=== PATIENT | male | born 1965 | race Caucasian/White ===

== ENCOUNTER 2021-08-24 12:29 | Emergency (ER) | payer MEDICARE, SELFPAY ==
[2021-08-24 13:23] VITALS: BP 102/65; PULSE 95; RESP 21; TEMP 37.9; O2SAT 89; BMI 32.3
[2021-08-24 13:25] VITALS: O2SAT 94
--- NOTE | 2021-08-24 13:34 | W.ED.SOB ---
HPI - SOB/Dyspnea General: Chief Complaint: Shortness of Breath/Dyspnea Stated Complaint: Difficulty Breathing Time Seen by Provider: 08/24/21 13:33 History of Present Illness: HPI Narrative: Mr. 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 He describes symptom onset is gradual approximately 2 weeks ago. He initially thought that he just had a respiratory infection however symptoms have persisted. He has fevers, chills, generalized malaise and shortness of breath. Symptoms are worse with exertion. Symptoms at rest are mild in intensity and severe with exertion. Overall worsening. Over the past 2 days he has had episodes where he feels like he cannot get a good breath. He denies history of lung disease or smoking. Denies sick contacts. He is not vaccinated against Covid. No other specific exacerbating or relieving factors the patient identifies. Review of Systems General: Reports: 10 or more systems reviewed and unremarkable except in HPI and below PFSH ED PFSH: Social History Smoking and tobacco status: never smoked Second hand smoke exposure: No Smoking risk assessment/counseling performed?: Yes Alcohol intake: never Desire information about alcohol rehabilitation?: No Counseling given: No Desire information about substance/drug rehabilitation?: No Counseling given: No Adopted: No Caregiver/support person: No Lives independently: Yes Household members: none Housing: House Marital status: Single Physical Exam Narrative: EXAM NARRATIVE: GENERAL/CONSTITUTIONAL -mildly ill-appearing. No acute distress. Eyes - PERRL, no conjunctival injection ENMT - Atraumatic external nose and ears. Moist mucous membranes NECK - supple. trachea midline CARDIOVASCULAR - regular rate and rhythm. Peripheral pulses 2+ and equal RESPIRATORY -mild tachypnea. Coarse breath sounds to auscultation. No significant accessory muscle use. ABDOMEN/GI - Nontender/Nondistended. MSK - Extremities without obvious deformity or tenderness to palpation SKIN - Warm, Dry NEURO - alert and appropriately oriented. Moves all extremities equally. Course ED course: - Patient was seen and evaluated by me at bedside - Patient placed on cardiac monitors, IV access obtained - Initial evaluation notable for mildly ill appearance, febrile. -After treatment ordered initially with cautious fluids given possibility of Covid. - Labs notable for no leukocytosis, hemoconcentration. Metabolic panel with evidence of likely dehydration, mild transaminitis. Rapid Covid negative. Flu negative. - Imaging notable for patchy infiltrates consistent with pneumonia - Given negative rapid Covid additional fluids ordered. - Upon serial reexamination after treatment the patient was mildly improved - Based on patient history, evaluation, labs, and imaging as interpreted the most likely cause of the patient's condition is pneumonia, possibly atypical, which we treated with antibiotics - The results of ED evaluation were discussed with the patient including prescriptions and/or symptomatic cares (if applicable) including appropriate and responsible use, followup plan, and return precautions. The patient verbalized understanding and felt safe for discharge. - Patient discharged in satisfactory condition. Vital Signs: Vital signs: Vital Signs Temperature 100.2 F H 08/24/21 13:23 Pulse Rate 87 08/24/21 18:12 Respiratory Rate 24 H 08/24/21 18:12 Blood Pressure 111/71 08/24/21 18:12 Pulse Oximetry 90 08/24/21 18:12 MDM - SOB/Dyspnea Medical Records: Attestation: I reviewed the patient's medical records. Lab Data: Attestation: I reviewed the patient's lab results. Labs: Lab Results 08/24/21 08/24/21 08/24/21 14:23 14:23 14:30 WBC 8.0 10^3/uL 10^3/ uL (4.0-10.0) RBC 5.48 10^6/uL H 10 ^6/uL (4.1-5.3) Hgb 16.7 g/dL H g/dL (11.7-16.6) Hct 48.1 % % (42.0-52.0) MCV 87.8 fl fl (80-94) MCH 30.5 pg pg (28.0-34.0) MCHC 34.7 g/dL g/dL (30.0-36.0) RDW 13.2 % % (12.1-15.1) Plt Count 360 10^3/cmm 10^3 /cmm (130-400) MPV 9.4 fL fL (7.4-10.4) Neut % (Auto) 84.4 % % Lymph % (Auto) 10.7 % % Sherman % (Auto) 3.9 % % Eos % (Auto) 0.1 % % Baso % (Auto) 0.3 % % Neut # (Auto) 6.74 10^3/uL 10^3 /uL (1.8-7.7) Lymph # (Auto) 0.9 10^3/uL 10^3/ uL (0.8-4.8) Sherman # (Auto) 0.3 10^3/uL 10^3/ uL (0.2-0.9) Eos # (Auto) 0.0 10^3/uL 10^3/ uL (0.0-0.8) Baso # (Auto) 0.0 10^3/uL 10^3/ uL (0.0-0.1) Nucleated RBC % (a uto) 0 % % Nucleated RBCs # 0.0 /100WBC /100W BC Sodium Potassium Chloride Carbon Dioxide Anion Gap BUN Creatinine GFR Calculation Glucose Calculated Osmolal ity Lactic Acid Calcium Total Bilirubin AST ALT Alkaline Phosphata se Troponin T Baselin e Troponin T [address] [place] Delta Troponin T C-Reactive Protein Total Protein Albumin Globulin Procalcitonin Influenza Type A A g Influenza Type B A g SARS-CoV-2 RNA (RT -PCR) Detected A (NOT DETECTED) SARS-CoV-2 Ag (Rap id) Negative (Negative) 08/24/21 08/24/21 08/24/21 14:30 14:30 14:30 WBC RBC Hgb Hct MCV MCH MCHC RDW Plt Count MPV Neut % (Auto) Lymph % (Auto) Sherman % (Auto) Eos % (Auto) Baso % (Auto) Neut # (Auto) Lymph # (Auto) Sherman # (Auto) Eos # (Auto) Baso # (Auto) Nucleated RBC % (a uto) Nucleated RBCs # Sodium 132 mmol/L L mmol /L (136-145) Potassium 3.9 mmol/L mmol/L (3.5-5.1) Chloride 93 mmol/L L mmol/ L (98-107) Carbon Dioxide 24 mmol/L mmol/L (22-29) Anion Gap 18.9 (5-19) BUN 21 mg/dL H mg/dL (6-20) Creatinine 1.1 mg/dL mg/dL (0.7-1.2) GFR Calculation 69.8 mL/min L mL/ min (90-130) Glucose 85 mg/dL mg/dL (65-115) Calculated Osmolal ity 276 mOsm/kg L mOs m/kg (285-295) Lactic Acid 1.4 mmol/L mmol/L (0.5-2.2) Calcium 8.8 mg/dL mg/dL (8.5-10.5) Total Bilirubin 0.7 mg/dL mg/dL (0.15-1.2) AST 64 U/L H U/L (0-40) ALT 62 U/L H U/L (0-41) Alkaline Phosphata se 41 IU/L IU/L (40-130) Troponin T Baselin e 9 ng/L ng/L (0-15) Troponin T [address] [place] Delta Troponin T C-Reactive Protein 155.8 mg/L H mg/L (0.0-4.9) Total Protein 7.4 g/dL g/dL (6.6-8.7) Albumin 4.1 g/dL g/dL (3.5-5.2) Globulin 3.3 g/dL g/dL (1.3-4.6) Procalcitonin 0.41 ng/mL ng/mL (0-0.5) Influenza Type A A g Influenza Type B A g SARS-CoV-2 RNA (RT -PCR) SARS-CoV-2 Ag (Rap id) 08/24/21 08/24/21 14:34 16:51 WBC RBC Hgb Hct MCV MCH MCHC RDW Plt Count MPV Neut % (Auto) Lymph % (Auto) Sherman % (Auto) Eos % (Auto) Baso % (Auto) Neut # (Auto) Lymph # (Auto) Sherman # (Auto) Eos # (Auto) Baso # (Auto) Nucleated RBC % (a uto) Nucleated RBCs # Sodium Potassium Chloride Carbon Dioxide Anion Gap BUN Creatinine GFR Calculation Glucose Calculated Osmolal ity Lactic Acid Calcium Total Bilirubin AST ALT Alkaline Phosphata se Troponin T Baselin e Troponin T [address] [place] 11.07 ng/L ng/L (0-15) Delta Troponin T 2.07 ABS# ABS# (0-10) C-Reactive Protein Total Protein Albumin Globulin Procalcitonin Influenza Type A A g Negative (Negative) Influenza Type B A g Negative (Negative) SARS-CoV-2 RNA (RT -PCR) SARS-CoV-2 Ag (Rap id) EKG Data^: EKG 1: Attestation: I personally reviewed and interpreted this EKG as follows: EKG Interpretation Date: 08/24/21 EKG interpretation time: 15:37 Interpretation: Twelve-lead EKG shows a regular rhythm at a rate of 91. OH interval 157, QRS duration 96, QTc 423. Normal axis. Interpretation: Sinus rhythm. Limited interpretation of V3. Discharge Plan Discharge Patient Disposition: Home Clinical Impression: Community acquired pneumonia Condition: Stable Prescriptions: New doxycycline hyclate 100 mg tablet 100 mg PO BID 10 Days Qty: 20 RF: 0 Discharge Orders: Discharge ED (Routine); Ordered 08/24/21 Ordered By: Idris Mcguire Referrals: Conchita Calix FNP [Primary Care Provider] - Discharge Diet: Usual diet Discharge Activity: Resume usual activity Patient Instructions: Community Acquired Pneumonia (ED) Activity Restrictions/Additional Instructions: Thank you for visiting the emergency department. You were seen and evaluated for cough and other symptoms. You likely have a bacterial pneumonia which will be treated with antibiotics. Please follow-up with your primary care provider. Please return to the emergency department for worsening symptoms, failure to improve, or anything else that you are concerned about and feel needs emergency department evaluation. Coding Level of Care Code ED Nurse Staff Industrial for Dano Cruz
--- NOTE | 2021-08-24 13:47 | XR_ITS ---
WS: [id number] Portable AP upright chest, 08/24/2021 Clinical Data: sob Comparison: PA and lateral chest, 04/27/2019. Findings: Bilateral patchy pulmonary opacities have developed since the last chest x-ray. No nodules, masses or effusions are seen. The heart is normal. The pulmonary vascularity is not increased. No pn eumothorax is seen. Monitor leads are on the chest wall. XR/XR chest 1V portable [id number] Impression: Bilateral pulmonary patchy opacities which may represent pneumonia.
[2021-08-24 14:41] LABS: Basophils % 0.3 %; Eosinophils % 0.1 %; Hematocrit 48.1 % (42.0-52.0); Hemoglobin 16.7 g/dL (11.7-16.6); Lymphocytes # 0.9 10^3/uL (0.8-4.8); Lymphocytes % 10.7 %; Mean Corpuscular HGB Conc 34.7 g/dL (30.0-36.0); Mean Corpuscular Hemoglobin 30.5 pg (28.0-34.0); Mean Corpuscular Volume 87.8 fl (80-94); Mean Platelet Volume 9.4 fL (7.4-10.4); Monocytes # 0.3 10^3/uL (0.2-0.9); Monocytes % 3.9 %; Neutrophils # 6.74 10^3/uL (1.8-7.7); Neutrophils % 84.4 %; Nucleated Red Blood Cells % 0 %; Platelet Count 360 10^3/cmm (130-400); Red Blood Count 5.48 10^6/uL (4.1-5.3); Red Cell Distribution Width 13.2 % (12.1-15.1)
[2021-08-24 15:06] LABS: Troponin(5th) Baseline 9 ng/L (0-15)
[2021-08-24 15:08] LABS: Alanine Aminotransferase 62 U/L (0-41); Albumin Level 4.1 g/dL (3.5-5.2); Alkaline Phosphatase 41 IU/L (40-130); Anion Gap 18.9 (5-19); Aspartate Amino Transferase 64 U/L (0-40); Blood Urea Nitrogen 21 mg/dL (6-20); C Reactive Protein 155.8 mg/L (0.0-4.9); Calcium 8.8 mg/dL (8.5-10.5); Carbon Dioxide 24 mmol/L (22-29); Chloride 93 mmol/L (98-107); Globulin 3.3 g/dL (1.3-4.6); Glomerular Filtration Rate 69.8 mL/min (90-130); Glucose 85 mg/dL (65-115); Osmolality Calculated 276 mOsm/kg (285-295); Potassium 3.9 mmol/L (3.5-5.1); Sodium 132 mmol/L (136-145); Total Bilirubin 0.7 mg/dL (0.15-1.2); Total Protein 7.4 g/dL (6.6-8.7)
[2021-08-24 15:09] LABS: Lactic Sepsis W/Reflex 1.4 mmol/L (0.5-2.2)
[2021-08-24 15:14] LABS: Procalcitonin 0.41 ng/mL (0-0.5)
[2021-08-24 15:35] LABS: SARS Covid-2 Antigen Negative (Negative)
[2021-08-24 15:35] LABS: Influenza A by IFA Negative (Negative); Influenza B by IFA Negative (Negative)
[2021-08-24] MEDS: ketorolac 30 mg/mL INJ 15 MG IVP (15:47)
[2021-08-24] MEDS: sodium chloride 0.9% 500 ML 999 ML IV (15:48)
--- NOTE | 2021-08-24 15:48 | ECG_ITS ---
[facility] Test Date: 2021-08-24 Pat Name: Tio Flores Jr Department: Room: Gender: Male Escort Patients: : 1965 Requested By: Idris Mcguire Order Number: [id number] Isaac MD: Bean Fine M.D. Measurements Intervals [place] Rate: 91 P: 44 ND: 157 QRS: 3 QRSD: 96 T: 26 QT: 343 QTc: 423 Interpretive Statements SINUS RHYTHM POSSIBLE LEFT ATRIAL ENLARGEMENT [-0.1mV P-WAVE IN V1/V2] No previous ECG available for comparison Electronically Signed On 08-24-2021 19:48:39 FLESHING MACHINE OPERATOR by Bean Fine M.D. [id number]
[2021-08-24] MEDS: cefTRIAXone 1,000 MG in sodium chloride 0.9% (plus) 50 ML 100 MG IV (16:35)
[2021-08-24 16:36] VITALS: BP 106/75; PULSE 78; RESP 16; O2SAT 98
[2021-08-24] MEDS: sodium chloride 0.9% 1,000 ML 999 ML IV (16:36)
[2021-08-24 16:44] VITALS: O2SAT 89; O2SAT 91
[2021-08-24] MEDS: doxycycline 100 MG in sodium chloride 0.9% (plus) 100 ML IV (17:00)
[2021-08-24 17:18] LABS: Troponin 5 2HR 11.07 ng/L (0-15); Troponin 5 2HR Delta 2.07 ABS# (0-10)
[2021-08-24 18:12] VITALS: BP 111/71; PULSE 87; RESP 24; O2SAT 90
[2021-08-26 07:17] LABS: Quest SARS-CoV-2 RNA DETECTED (NOT DETECTED)
--- NOTE | 2021-08-26 14:27 | PC.NURSE ---
COVID RESULT GIVEN @ 1356
== END 2021-08-24 18:14 | disposition home or self-care (01) ==
PROVIDERS: Emergency Provider Emergency Medicine; PCP Nurse Practitioner Family
DX: J18.8 Other pneumonia, unspecified organism (principal); U07.1 COVID-19
CPT/HCPCS: 71045; 80053; 83605; 84145; 84484; 85025; 86140; 87426; 87635; 87804; 93005; 96365; 96367; 99283; J0696; J1885; J3490; J7030; J7040

== ENCOUNTER 2024-04-16 11:21 | Emergency (ER) | payer MEDICARE, SELFPAY ==
[2024-04-16 11:26] VITALS: BP 135/91; PULSE 80; RESP 16; TEMP 36.6; O2SAT 95
--- NOTE | 2024-04-16 11:32 | XR_ITS ---
WS: [id number] XR shoulder LT min 2V* [id number] REASON FOR EXAM: injury FINDINGS: Anterior dislocation of the glenohumeral joint. Possible nondisplaced fracture of the inferior glenoid. Moderate narrowing of the glenohumeral joint with mild subchondral sclerosis and moderate osteophytos is. XR/XR shoulder LT min 2V* [id number] IMPRESSION: Anterior dislocation of the glenohumeral joint with possible glenoid fracture.
--- NOTE | 2024-04-16 11:57 | XR_ITS ---
WS: [id number] XR shoulder LT min 2V* [id number] REASON FOR EXAM: injury FINDINGS: [employer] of normal anatomic alignment of the glenohumeral joint. Minimally displaced glenoid rim fracture inferiorly. XR/XR shoulder LT min 2V* [id number] IMPRESSION: Reduction of previously demonstrated dislocation as above.
--- NOTE | 2024-04-16 12:01 | W.ED.EXTPRO ---
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 Denies any other injuries. Associated symptoms: Deny chest pain, fever(s) or rash Review of Systems Const: Denies: fever(s), chills, body aches or change in appetite ENMT: Denies: throat pain or dental pain Card: Denies: chest pain Resp: Denies: dyspnea GI: Denies: abdominal pain, nausea, vomiting or diarrhea Musc: Reports: extremity pain; Denies: neck pain or back pain Skin/Breast: Denies: rash Neuro: Denies: headache(s) PFSH ED PFSH: Social History Smoking and tobacco/nicotine status: never used tobacco/nicotine Second hand smoke exposure: No Alcohol intake: never Substance/Drug Use: never Adopted: No Caregiver/support person: No Lives independently: Yes Household members: none Housing: House Marital status: Single Physical Exam Const: COMMON NORMALS: no acute distress, patient oriented x3 and healthy appearing HENMT: COMMON NORMALS: normocephalic and atraumatic HEAD & SCALP: normocephalic and atraumatic Neck/C-Spine: COMMON NORMALS: full ROM and supple Chest: COMMONS NORMALS: normal inspection of the chest Resp: COMMON NORMALS: normal respiratory effort Cardio: COMMON NORMALS: regular rate RATE: regular rate Extremity: NARRATIVE EXTREMITY EXAM: Step-off noted to left shoulder with likely dislocation Neuro: COMMON NORMALS: patient oriented x3, moves all extremities and no focal motor deficits Psych: COMMON NORMALS: mental status grossly normal, Normal thought process present and cooperative THOUGHT PROCESS: Normal thought process present Skin: COMMON NORMALS: no rashes or lesions noted and no wounds GENERAL SKIN EXAM: no rashes or lesions noted Procedures Orthopedic Joint Reduction Joint #1: Time Out Performed: Yes Side: left Shoulder Technique Used (if applicable): traction/counter-traction Post-reduction neuro exam: intact Post-reduction vascular: intact Post Reduction X-Ray Obtained: Yes Post Reduction X-Ray Results: reduced Splint Applied: Yes Patient Tolerated Procedure: well Course Vital Signs: Vital signs: Vital Signs Temperature 97.9 F 04/16/24 11:26 Pulse Rate 80 04/16/24 11:26 Respiratory Rate 16 04/16/24 11:26 Blood Pressure 135/91 04/16/24 11:26 Pulse Oximetry 95 04/16/24 11:26 Oxygen Delivery Me thod Room Air 04/16/24 11:26 MDM - Extremity (Nontraumatic) Medical Decision Making Patient presents here with a left shoulder dislocation was able to reduce his shoulder here placed in a shoulder immobilizer we will get him follow-up with orthopedics he is return if worsening he understands agrees to plan. Medical Records I reviewed the patient's medical records. Lab Data Radiology Impressions Shoulder X-Ray 04/16/24 11:32 IMPRESSION: Anterior dislocation of the glenohumeral joint with possible glenoid fracture. All radiology interpretation(s) finalized by discharge Discharge Plan Discharge Patient Disposition: Home Clinical Impression: Dislocation of shoulder region Qualifiers: Encounter type: initial encounter Laterality: left Qualified Code(s): S43.005A - Unspecified dislocation of left shoulder joint, initial encounter Condition: Stable Discharge Orders: Discharge ED (Routine); Ordered 04/16/24 Ordered By: Marcell Fowler Referrals: Justice Ahn MD [Primary Care Provider] - Lev Moody DO [Physician] - 1-3 days Discharge Diet: Advance as tolerated Discharge Activity: Resume usual activity Patient Instructions: Shoulder Dislocation (ED) Coding Level of Care Code ED [employer] Operator for Dano Cruz
--- NOTE | 2024-04-16 12:02 | DCPLANNER ---
messaged ortho for er f/u
[2024-04-16 14:11] VITALS: BP 135/91; PULSE 80; RESP 16; TEMP 36.6; O2SAT 95
== END 2024-04-16 13:00 | disposition home or self-care (01) ==
PROVIDERS: Emergency Provider Emergency Medicine; PCP Family Medicine
DX: S43.085A Other dislocation of left shoulder joint, initial encounter (principal); X50.0XXA Overexertion from strenuous movement or load, initial encounter
CPT/HCPCS: 23650; 73030; 99283

== ENCOUNTER 2024-05-04 07:49 | Outpatient (CLI) | payer MEDICARE, SELFPAY ==
--- NOTE | 2024-05-04 07:52 | MR_ITS ---
WS: [id number] MRI LEFT SHOULDER NONCONTRAST TECHNIQUE: Sagittal T2, coronal T1, T2 and proton density imaging. Axial gradient PDE imaging. CLINICAL INFORMATION: CLOSED L SHOULDER DISLOCATION FINDINGS: Hill-Sachs lesion with a small associated fracture fragment and diffuse edema in the posterolateral h umeral head. Associated concavity. Slightly displaced fracture of the anterior inferior glenoid exten ding through the articular surface and body of the glenoid. Fracture fragment measures approximately 1.5 cm. Associated soft tissue edema. Moderate degenerative arthritis AC joint with fluid and edema. Slight subacromial spurring with impin gement of the supraspinatus. Tendinopathy with small intrasubstance tears involving the distal supras pinatus. Infraspinatus is normal in appearance. Small amount of subacromial subdeltoid fluid. Normal teres minor. Normal subscapularis. Biceps tendon appears intact within the bicipital groove. Intra-ar ticular biceps tendon appears intact. MR/MR shoulder LT wo con* [id number] IMPRESSION: 1. Hill-Sachs lesion with fracture concavity and a small associated fracture f ragment. Associated edema with concave posterior lateral humeral head. 2. Associated Bankart fracture involving the anterior inferior bony glenoid ex tending through the articular surface and body of the glenoid. Fracture fragmen t measures approximately 1.5 cm with mild displacement. 3. Small intrasubstance insertional tears distal supraspinatus with tendinopat hy. 4. Rotator cuff is otherwise intact. 5. Moderate degenerative arthritis AC joint with fluid and edema. Slight impin gement distal supraspinatus.
== END 2024-05-04 07:50 | disposition home or self-care (01) ==
PROVIDERS: PCP Family Medicine; Visit Provider Orthopaedic Surgery
DX: S43.085A Other dislocation of left shoulder joint, initial encounter (principal); M13.812 Other specified arthritis, left shoulder; M75.42 Impingement syndrome of left shoulder; X58.XXXA Exposure to other specified factors, initial encounter
CPT/HCPCS: 73221